=== PATIENT | male | born 1945 | race Caucasian/White ===

== ENCOUNTER 2019-05-08 13:37 | Inpatient (IN) | payer MEDICAID ==
[2019-05-08] MEDS ORDERED: LORazepam 2 MG/ML INJ IV PRN (13:39)
[2019-05-08] MEDS ORDERED: ACETAMINOPHEN SUPPOSITORY 650 MG SUPP RECTAL PRN (13:39)
[2019-05-08] MEDS ORDERED: ATROPINE OPHTH SOLN 1% 5ML BTL SUBLINGUAL PRN (13:39)
[2019-05-08] MEDS ORDERED: MORPHINE SULFATE 2 MG/ML SYRINGE IV PRN (13:39)
[2019-05-08] MEDS ORDERED: ONDANSETRON 4 MG/2 ML VIAL IVP PRN (13:39)
[2019-05-08] MEDS: SCOPOLAMINE 1.5MG/72HR PATCH TRANSDERM SCH (14:48)
[2019-05-08] MEDS: MORPHINE SULFATE 2 MG/ML SYRINGE IV SCH ×3 (14:49→22:37)
[2019-05-09] MEDS: MORPHINE SULFATE 2 MG/ML SYRINGE IV SCH ×6 (01:59→23:23)
--- NOTE | 2019-05-09 16:37 | P.HPIM ---
History of Present Illness H&P Date: 05/09/19 Chief Complaint: pain Patient is a 73-year-old male with coronary artery disease, long- standing history of alcohol misuse, degenerative joint disease, tobacco abuse, hypertension, dyslipidemia, and history of a GI bleed with possible GI malignancy who initially was admitted to the emergency department with complaints of confusion, fall, and was found on the ground. He was subsequently admitted to the hospital. He had a prolonged hospital stay in which the family agreed with comfort care as the patient had never want an aggressive workup for his GI bleeding and possible colonic mass. He subsequently is admitted to general inpatient hospice. Patient seen and examined at bedside with family present. He has eyes open but he is not talking. He appears comfortable. Her daughter and son at bedside he is much more pain-free today. They've not noted any coughing. He has not been eating. Review of Systems Unable to obtain review of systems as patient is currently nonverbal. Past Medical History Past Medical History: Coronary Artery Disease (CAD), Chest Pain / Angina, Hyperlipidemia, Hypertension, Myocardial Infarction ([place]), Pneumonia Additional Past Medical History / Comment(s): melena, pweight loss, ETOH abuse, fall in past few months with stress fractured vertebraes, low back pain, Last Myocardial Infarction Date:: About 10 yrs ago-2009 History of Any Multi-Drug Resistant Organisms: None Reported Past Surgical History: Heart Catheterization With Stent Additional Past Surgical History / Comment(s): pt has been made hospice on 05/08/19 Additional Past Anesthesia/Blood Transfusion Reaction / Comment(s): Pt has never had general/spinal anesthesia. Date of Last Stent Placement:: About 2009-does not recall where procedure was done. Past Psychological History: Anxiety, Depression Additional Psychological History / Comment(s): Pt resides alone. He uses no assistive device. He is a [place] . He drives. Smoking Status: Current every day smoker Past Alcohol Use History: Abuse, Daily, Heavy Additional Past Alcohol Use History / Comment(s): Pt started smoking as a teen, quit 10 yrs once but resumed smoking about 20 yrs ago. Pt drinks 6-8 beers a day. Past Drug Use History: None Reported - Past Family History Father Family Medical History: No Reported History Mother Family Medical History: No Reported History Medications and Allergies Home Medications Medication Instructions Recorded Confirmed Type Atorvastatin [Lipitor] 20 mg PO DAILY 04/27/19 05/08/19 History Carvedilol [Coreg] 3.125 mg PO BID 04/27/19 05/08/19 History Citalopram Hydrobromide [CeleXA] 20 mg PO DAILY 04/27/19 05/08/19 History Hydrochlorothiazide [Hydrodiuril] 50 mg PO DAILY 04/27/19 05/08/19 History Meloxicam [Mobic] 7.5 mg PO BID PRN 04/27/19 05/08/19 History Niacin 500 mg PO HS 04/27/19 05/08/19 History Allergies Allergy/AdvReac Type Severity Reaction Status Date / Time No Known Allergies Allergy Verified 04/27/19 12:02 Physical Exam Osteopathic Statement: *. No significant issues noted on an osteopathic structural exam other than those noted in the History and Physical/Consult. Vitals: Intake and Output 05/08/19 05/09/19 05/09/19 22:59 06:59 14:59 Intake Total 0 0 Balance 0 0 Intake: Oral 0 0 Other: Voiding Method Indwelling Catheter Indwelling Catheter General: ill appearing, no distress, appears at stated age, normal weight Derm: no unusual rashes/lesions no unusual ecchymoses, warm, dry Head: atraumatic, normocephalic, symmetric Eyes: EOMI, no lid lag, anicteric sclera, pupils equal round reactive to light ENT: Nose and ears atraumatic, no thrush, Neck: No thyromegaly, no cervical lymphadenopathy, trachea midline, supple Mouth: no lip lesion, mucus membranes moist Cardiovascular: S1S2 reg, no murmur, positive posterior tibial pulse bilateral, 1+ edema, capillary refill less than 2 seconds Lungs: Decreased bs bilateral, no rhonchi, no rales , no accessory muscle use Abdominal: soft, nontender to palpation, no guarding, no appreciable organomegaly, normal bowel sounds Ext: + gross muscle atrophy, Moving arms independently, no contractures, Neuro: CN II-XI grossly intact, light touch intact all 4 extremities, Psych: Alert and awake, appropriate affect Thrombosis Risk Factor Assmnt - DVT/VTE Prophylaxis DVT/VTE Prophylaxis: Low risk, early ambulation encouraged - Choose All That Apply Each Risk Factor Represents 2 Points: Age 61-74 years Thrombosis Risk Factor Assessment Total Risk Factor Score: 2 Thrombosis Risk Factor Assessment Level: Low Risk Assessment and Plan Assessment: Possible colonic mass Dysphagia Anemia KRYSTIN Hypernatremia Hematochezia Weight loss HTN HLD CAD Anxiety Depression Dementia ETOH abuse Plan: Comfort care with scheduled and prn morphine, scolapamine patch, prn atropine, and zofran .
[2019-05-09] MEDS ORDERED: diphenhydrAMINE 50 MG/ML 1 ML VIAL IVP PRN (17:55)
[2019-05-10] MEDS: MORPHINE SULFATE 2 MG/ML SYRINGE IV SCH ×6 (01:49→20:49)
--- NOTE | 2019-05-10 17:58 | P.PN ---
Subjective Progress Note Date: 05/10/19 Principal diagnosis: Colonic mass and hematochezia Patient is a 73-year-old male with coronary artery disease, long- standing history of alcohol misuse, degenerative joint disease, tobacco abuse, hypertension, dyslipidemia, and history of a GI bleed with possible GI malignancy who initially was admitted to the emergency department with complaints of confusion, fall, and was found on the ground. He was subsequently admitted to the hospital. He had a prolonged hospital stay in which the family agreed with comfort care as the patient had never want an aggressive workup for his GI bleeding and possible colonic mass. He subsequently is admitted to general inpatient hospice. Has done well on scheduled and prn morphine. Has intermittent lucid episode. Patient seen and examined at bedside no family present at bedside. Appears comfortable. Shakes head no to pain. No acute events overnight per nursing. Also d/w hospice nurse. Objective - Vital Signs Vital signs: Intake & Output 05/09/19 05/10/19 05/10/19 18:59 06:59 18:59 Intake Total 0 Output Total 800 Balance -800 Intake: Oral 0 Output: Urine 800 Other: Voiding Method Indwelling Catheter Indwelling Catheter Indwelling Catheter # Voids 0 - Exam General: non toxic, no distress, appears at stated age Derm: warm, dry Head: atraumatic, normocephalic, symmetric Eyes: EOMI, no lid lag, anicteric sclera Mouth: no lip lesion, mucus membranes dry Cardiovascular: S1S2 reg, no murmur, positive posterior tibial pulse bilateral, Lungs: CTA bilateral, no rhonchi, no rales , no accessory muscle use Abdominal: soft, nontender to palpation, no guarding, no appreciable organomegaly Ext: no gross muscle atrophy, trace edema, no contractures Psych: Awake, no distress, non verbal Assessment and Plan Assessment: Possible colonic mass Dysphagia Anemia KRYSTIN Hypernatremia Hematochezia Weight loss HTN HLD CAD Anxiety Depression Dementia ETOH abuse Plan: Continue with comfort care with scheduled and prn morphine, scolapamine patch, prn atropine, and zofran. Plan is for discharge to half-way with hospice once bed available.
[2019-05-11] MEDS: MORPHINE SULFATE 2 MG/ML SYRINGE IV SCH ×3 (04:11→12:00)
[2019-05-11] MEDS: SCOPOLAMINE 1.5MG/72HR PATCH TRANSDERM SCH (10:32)
--- NOTE | 2019-05-11 11:23 | P.DS ---
Providers Date of admission: 05/08/19 13:57 Expected date of discharge: 05/11/19 Attending physician: Tramaine Plaza MD Primary care physician: [facility] Hospital Course: Discharge Diagnosis: Possible colonic mass Dysphagia Anemia KRYSTIN Hypernatremia Hematochezia Weight loss HTN HLD CAD Anxiety Depression Dementia ETOH abuse Hospital Course: Patient is a 73-year-old male with coronary artery disease, long- standing history of alcohol misuse, degenerative joint disease, tobacco abuse, hypertension, dyslipidemia, and history of a GI bleed with possible GI malignancy who initially was admitted to the emergency department with complaints of confusion, fall, and was found on the ground. He was subsequently admitted to the hospital. He had a prolonged hospital stay in which the family agreed with comfort care as the patient had never want an aggressive workup for his GI bleeding and possible colonic mass. He subsequently is admitted to general inpatient hospice. Has done well on scheduled and prn morphine. Has intermittent lucid episode. He was determined stable for transfer to SNF to receive continued hospice care. Patient seen and examined at bedside. He is not speaking, shakes head no to pain. Vital signs reviewed and stable. General: non toxic, no distress, appears at stated age Derm: warm, dry Head: atraumatic, normocephalic, symmetric Eyes: EOMI, no lid lag, anicteric sclera Mouth: no lip lesion, mucus membranes dry Cardiovascular: S1S2 reg, no murmur, positive posterior tibial pulse bilateral, Lungs: decreased bs bilateral, no rhonchi, no rales , no accessory muscle use Ext: 2+ edema Psych: awake, interactive. A total of 25 minutes of time were spent preparing this complex discharge summary . Plan - Discharge Summary New Discharge Prescriptions: New diphenhydrAMINE ELIXIR [Benadryl Elixir] 25 mg PO Q6HR #100 ml Atropine Ophth Soln 1% 5Ml [Isopto Atropine 1% 5Ml] 2 drops SUBLINGUAL Q4HR PRN bottle PRN Reason: Excess Secretions MORPHINE ORAL VALENTNI CONC 20mg/mL [Roxanol Oral Soln Conc 20MG/ML] 10 mg PO Q4H PRN #120 ml PRN Reason: Pain Scopolamine 1.5MG/72Hr Patch [TransDerm Scop] 1 patch TRANSDERM Q72H patch Acetaminophen Suppository [Tylenol Suppository] 650 mg RECTAL Q4HR PRN supp PRN Reason: Fever And/Or Mild Pain Discontinued Niacin 500 mg PO HS Meloxicam [Mobic] 7.5 mg PO BID PRN PRN Reason: Pain Hydrochlorothiazide [Hydrodiuril] 50 mg PO DAILY Citalopram Hydrobromide [CeleXA] 20 mg PO DAILY Carvedilol [Coreg] 3.125 mg PO BID Atorvastatin [Lipitor] 20 mg PO DAILY Discharge Medication List Acetaminophen Suppository [Tylenol Suppository] 650 mg RECTAL Q4HR PRN supp 05/11/19 [Rx] Atropine Ophth Soln 1% 5Ml [Isopto Atropine 1% 5Ml] 2 drops SUBLINGUAL Q4HR PRN bottle 05/11/19 [Rx] MORPHINE ORAL VALENTIN CONC 20mg/mL [Roxanol Oral Soln Conc 20MG/ML] 10 mg PO Q4H PRN #120 ml 05/11/19 [Rx] Scopolamine 1.5MG/72Hr Patch [TransDerm Scop] 1 patch TRANSDERM Q72H patch 05/11/19 [Rx] diphenhydrAMINE ELIXIR [Benadryl Elixir] 25 mg PO Q6HR #100 ml 05/11/19 [Rx] Discharge Disposition: TRANSFER TO SNF/ECF
== END 2019-05-11 14:05 | DRG 951 ==
LOC: 5NMEDONC 13:57
PROVIDERS: ADMIT Internal Medicine; ATTEND Internal Medicine
DX: Z51.5 Encounter for palliative care (principal); E87.0 Hyperosmolality and hypernatremia; N17.9 Acute kidney failure, unspecified; K92.1 Melena; E78.5 Hyperlipidemia, unspecified; F03.90 Unspecified dementia, unspecified severity, without behavioral disturbance, psychotic disturbance, mood disturbance, and anxiety; F17.200 Nicotine dependence, unspecified, uncomplicated; F32.9 Major depressive disorder, single episode, unspecified; D64.9 Anemia, unspecified; R13.10 Dysphagia, unspecified; F41.9 Anxiety disorder, unspecified; I10 Essential (primary) hypertension; I25.10 Atherosclerotic heart disease of native coronary artery without angina pectoris; I25.2 Old myocardial infarction; Z79.1 Long term (current) use of non-steroidal anti-inflammatories (NSAID); Z79.899 Other long term (current) drug therapy